=== PATIENT | female | born 1945 | race Caucasian/White ===

== ENCOUNTER 2017-07-06 13:43 | Emergency (ER) | payer MEDICARE ==
[~2017-07-06] VITALS: Ht 175.3 cm; Wt 63.6 kg
[2017-07-06 13:47] VITALS: BP 155/81; PULSE 69; RESP 16; O2SAT 97
[2017-07-06 14:53] VITALS: BP 156/57; PULSE 58; RESP 13; O2SAT 98
[2017-07-06 15:05] LABS: BASOPHILS % (AUTO) 0.2 % (0-3); EOSINOPHILS % (AUTO) 0.4 % (0-5); MONOCYTES % (AUTO) 8.5 % (4-12); Mean Corpuscular Hemoglobin 32.9 pg (27.0-35.0); Mean Corpuscular Volume 93.9 fL (81-100); NEUTROPHILS % (AUTO) 74.6 % (40-74); Platelet Count 141 bil/L (150-400)
--- NOTE | 2017-07-06 15:15 | ED.REPORT ---
HPI-Chest Pain 40 and Over Date of Service Jul 06, 2017 ED Provider: Prasanth Hoskins DO A 71 year old female with a history of aortic valve replacement, anxiety and "irregular heartbeat" presents to the ED complaining of anxiety. The pt has been experiencing episodes of anxiety accompanied by intermittent chest pressure radiating into her jaw and "increasingly irregular heartbeat." The pt states that her chest is "quaking" but denies shortness of breath, nausea, diaphoresis, unilateral lower extremity swelling or hemoptysis. The pain is not exertional and the pt is able to exercise without onset of chest pressure. She believes that her symptoms are due to anxiety. The pt has a history of addiction to the anxiety medication Clonazepam, which she tapered off of, but is unwilling to start another benzodiazepine medication for this reason. She spoke with her PCP several days ago, who prescribed Ativan. She has taken six Ativan pills since 07/02/2017 and states that her symptoms have worsened since that point. Nursing Notes Stated Complaint: HEART OR ANXIETY Chief Complaint: Chest Pain Nursing Notes Reviewed: Yes Allergies: Coded Allergies: sulfamethoxazole (Verified Allergy, Unknown, 07/06/17) trimethoprim (Verified Allergy, Unknown, 07/06/17) Sulfa (Sulfonamide Antibiotics) (Verified Adverse Reaction, Severe, body spasms, 07/06/17) codeine (Verified Adverse Reaction, Severe, wired, 07/06/17) No Active Prescriptions or Reported Meds General Time Seen by MD: 14:50 Chief Complaint Other (Anxiety) Hx Obtained From: Patient Arrived By: Walk-in Sudden in Onset?: No Symptom Duration: Intermittent Recent Healthcare: Recent doctor visit Similar Sx Previous: Yes Past Medical History Past Medical History UTIs anxiety "irregular heartbeat" Past Surgical History aortic valve replacement Smoking History Never Smoker Social History lives in [place], stays in [place] during the summer Alcohol Use: Denies alcohol use Drug Use: Denies drug use Ambulatory Status Independent Review of Systems Review of Systems Note: irregular heartbeat jaw pain radiating from chest denies unilateral lower extremity swelling Respiratory: Denies: Non-productive cough, Prod cough, bloody, Shortness of breath Cardiovascular: Reports: Chest pain GI: Denies: Abdominal pain, Nausea, Vomiting Musculoskeletal: Denies: Back pain, Neck pain Skin: Denies Rash Psychiatric: Reports: Anxiety Complete sys rev & neg: except as marked. Physical Exam Initial Vital Signs Vital Signs (First) Date Time Temp Pulse Resp B/P Pulse Ox O2 Delivery O2 Flow Rate FiO2 07/06/17 13:47 36.7 69 16 155/81 97 Room Air Initial VS: Reviewed General/Constitutional: Awake, Alert Respiratory / Chest: Atraumatic, Breath sounds NL, Breath sounds = bilat, No respiratory distress Cardiovascular: Heart rate NL, Regular rhythm, Heart sounds NL Abdomen: Atraumatic, Soft, Non-tender Neck: Atraumatic, Supple, Full range of motion Back: Atraumatic, Full range of motion Lower Extremity / Pelvis / MS: Atraumatic, Full range of motion Skin: Atraumatic, Color NL, No rash, Warm, Dry Neurologic: Oriented X3, Speech NL, No motor deficits, No sensory deficits Psychiatric: Affect NL Abnormal Mood/Affect: Positive: Anxious Head / Eyes: Atraumatic, Normocephalic, PERRL, EOMI ENT: Atraumatic, Airway patent, Mucous membranes moist Upper Extremity / MS: Atraumatic, Full range of motion Interpretation & Diagnostics Lab Results Interpretation Result Diagram: 07/06/17 1445 07/06/17 1445 Test 07/06/17 14:45 White Blood Count 5.6th/mm3 (3.8-10.1) Red Blood Count 4.26mil/mm3 (3.90-5.20) Hemoglobin 14.0g/dL (12.0-15.6) Hematocrit 40.0% (35.0-46.0) Mean Corpuscular Volume 93.9fL (81-100) Mean Corpuscular Hemoglobin 32.9pg (27.0-35.0) Mean Corpuscular Hemoglobin Concent 35.0% (32.0-37.0) Red Cell Distribution Width 12.4% (12.3-15.4) Platelet Count 141bil/L (150-400) Neutrophils (%) (Auto) 74.6% (40-74) Lymphocytes (%) (Auto) 16.3% (14-46) Monocytes (%) (Auto) 8.5% (4-12) Eosinophils (%) (Auto) 0.4% (0-5) Basophils (%) (Auto) 0.2% (0-3) Sodium Level 137mEq/L (134-144) Potassium Level 4.1mEq/L (3.5-5.2) Chloride Level 97mEq/L (97-108) Carbon Dioxide Level 25mmol/L (18-29) Blood Urea Nitrogen 10mg/dL (8-27) Creatinine 0.61mg/dL (0.57-1.00) Estimat Glomerular Filtration Rate 139mL/min (>59) Glucose Level 109mg/dL (60-99) Calcium Level 9.4mg/dL (8.5-10.1) Magnesium Level 2.0mg/dL (1.6-2.6) Total Bilirubin 0.4mg/dL (0.0-1.2) Aspartate Amino Transf (AST/SGOT) 23U/L (0-50) Alanine Aminotransferase (ALT/SGPT) 13U/L (0-32) Alkaline Phosphatase 68U/L (25-165) Troponin T < 0.010ug/L (0.0-0.011) Total Protein 6.6g/dL (6.4-8.4) Albumin 4.4g/dL (3.4-5.0) ECG Interpretation ECG Interpretation: normal sinus rhythm with a rate of 55 Time: 14:46 Interpreted by: ED physician X-Ray Chest Interpretation Chest Xray Interpretation: IMPRESSION: 5 mm left basilar nodular opacity without priors available for comparison. This could represent a nipple shadow. As clinically indicated, followup with nipple markers may be obtained. Dictated by: Taylor Lincoln M.D. on 07/06/2017 at 15:14 Approved by: Taylor Lincoln M.D. on 07/06/2017 at 15:15 Interpretation / Wet Read by: Interpret - Radiologist Re-Eval/Medical Decision Med Decision/Clinical Course Evidence of acute coronary syndrome. Patient is discharged to follow-up with her primary care doctor. Return precautions given. Source of Hx: Old records Time of Eval: 15:53 Patient Status: Condition improved Re-Evaluation/Progress Note: Pt rechecked, who is comfortable. Radiology and lab results are discussed. Time of Eval: 16:44 Patient Status: Condition improved Re-Evaluation/Progress Note: Pt rechecked, who is resting. The diagnosis and plan for discharge are discussed. The pt understands and agrees with the plan. All questions are addressed at this time. Counseled Regarding: Diagnosis, Lab results, Need for follow-up, When/why to return to ED Discharge & Departure Primary Impression: Chest pain Chest pain type: unspecified Qualified Code: R07.9 - Chest pain, unspecified Disposition: Home Discharge Condition All VS Reviewed: Yes Condition: Stable Patient Instructions: Angina (ED) Additional Instructions: Your workup in the ER is reassuring for heart attack. Follow-up with your primary care doctor for further evaluation. Continue the Ativan that you have been taking at home for anxiety. Return to the ER as needed if worse. Referrals: OTHER,PHYSICIAN (PCP) (Family) Scribe Attestation Portions of this note were transcribed by Abelardo Gutierrez. I, Dr. Hoskins personally performed the history, physical exam and medical decision-making; I reviewed and confirmed the accuracy of the information in the transcribed note. Prasanth Hoskins DO Jul 06, 2017 15:15 ABELARDO GUTIERREZ Jul 06, 2017 15:22
--- NOTE | 2017-07-06 15:17 | DRSVH ---
PROCEDURE: X-RAY CHEST ONE VIEW, PORTABLE ([id number]) INDICATIONS: CHEST PAIN TECHNIQUE: One view of the chest was acquired. COMPARISON: None. FINDINGS: Surgical changes and devices: Sternal wires. Lungs and pleura: No pleural effusions or pneumothorax. 5 mm left basilar nodular opacity. No priors are available for comparison. Mediastinum: Mediastinal contours appear normal. Heart size is normal. Bones and chest wall: No suspicious bony lesions. Overlying soft tissues appear unremarkable. IMPRESSION: 5 mm left basilar nodular opacity without priors available for comparison. This could rep resent a nipple shadow. As clinically indicated, followup with nipple markers may be obtained. Dictated by: Taylor Lincoln M.D. on 07/06/2017 at 15:14 Approved by: Taylor Lincoln M.D. on 07/06/2017 at 15:15
[2017-07-06 15:37] LABS: TROPONIN T < 0.010 ug/L (0.0-0.011)
[2017-07-06 16:23] VITALS: BP 169/66; PULSE 65; RESP 15; O2SAT 97
[2017-07-06 17:04] VITALS: BP 169/66; PULSE 65; RESP 15; O2SAT 97
== END 2017-07-06 17:04 | disposition home or self-care (01) ==
LOC: SED 13:43
DX: R07.89 Other chest pain (principal); I49.9 Cardiac arrhythmia, unspecified; Z87.440 Personal history of urinary (tract) infections; Z95.4 Presence of other heart-valve replacement; Z88.1 Allergy status to other antibiotic agents; Z88.2 Allergy status to sulfonamides; Z88.5 Allergy status to narcotic agent
CPT/HCPCS: 36415; 71010; 80053; 83735; 84484; 85025; 93005; 96374; 99285; J1200